=== PATIENT | female | born 1935 | race Caucasian/White ===

== ENCOUNTER → 2018-02-17 | Outpatient (CLI) | payer MEDICARE ==
--- NOTE | 2018-02-17 14:49 | RAD ---
Bone densitometry 02/17/2018 9:52 AM Indication: screening, ov failure, hx breast ca Comparison Study: None available. Discussion: Bone Densitometry was performed with dual photon absorption of the lumbar spine and right proximal femur. Lumbar Spine: Bone average density is is 1.237g/cm2 for L1-L4. T-Score is 0.5 Right femoral neck: Bone average density is 0.8 x 5g/cm2. T-Score is -1.3. IMPRESSION: Osteopenia as measured in the right femoral neck. Note: Definitions established by the World Health Organization: Normal: T-score is -1.0 or above. Osteopenia: T-score is between -1.0 and -2.5. Osteoporosis: T-score is -2.5 or below. Electronically signed by: Agustin An MD (02/17/2018 2:46 PM) [facility]
== END | disposition home or self-care (01) ==
LOC: DXRAD 09:27
PROVIDERS: ATTEND Neuromusculoskeletal Medicine & OMM
DX: M85.851 Other specified disorders of bone density and structure, right thigh (principal)
CPT/HCPCS: 77080

== ENCOUNTER → 2018-02-18 | Outpatient (CLI) | payer MEDICARE ==
[2018-02-18 09:10] LABS: BASO % 1 % (0-3); EOS # 0.3 x10^3/uL (0.0-0.7); EOS % 5 % (0-3); HEMATOCRIT 39.7 % (36.0-47.0); HEMOGLOBIN 13.2 g/dL (12.0-15.5); LYMPH # 1.7 x10^3/uL (1.0-4.8); LYMPH % 27 % (24-48); MEAN CORPUSCULAR HEMOGLOBIN 30 pg (25-35); MEAN CORPUSCULAR HGB CONC 33 g/dL (31-37); MEAN CORPUSCULAR VOLUME 90 fL (79-100); MONO # 0.5 x10^3/uL (0.0-1.1); MONO % 8 % (0-9); NEUT # 3.8 x10^3uL (1.8-7.7); NEUT % 60 % (31-73); PLATELET COUNT 283 x10^3/uL (140-400); RED BLOOD COUNT 4.43 x10^6/uL (3.50-5.40); RED CELL DISTRIBUTION WIDTH 14.1 % (11.5-14.5); WHITE BLOOD COUNT 6.3 x10^3/uL (4.0-11.0)
[2018-02-18 09:15] LABS: ALBUMIN 3.5 g/dL (3.4-5.0); ALBUMIN/GLOBULIN RATIO 0.9 (1.0-1.7); CALCIUM 8.6 mg/dL (8.5-10.1); CREATININE 0.9 mg/dL (0.6-1.0); GFR 60.1; POTASSIUM 3.5 mmol/L (3.5-5.1); TOTAL BILIRUBIN 0.9 mg/dL (0.2-1.0); TOTAL PROTEIN 7.4 g/dL (6.4-8.2)
[2018-02-18 09:29] LABS: BACTERIA,URINE 0 /HPF (0-FEW); BILIRUBIN,URINE NEG (NEG); CLARITY,URINE HAZY; COLOR,URINE YELLOW; GLUCOSE,URINE NEG (NEG); NITRITE,URINE NEG (NEG); RBC,URINE 0 /HPF (0-2); SQUAMOUS EPITHELIAL CELL,UR FEW /LPF; UROBILINOGEN,URINE 0.2 mg/dL (0.2 mg/dL); WBC,URINE OCC /HPF (0-4)
[2018-02-18 15:18] LABS: THYROID STIM HORMONE (TSH) 1.9 uIU/mL (0.358-3.740)
== END | disposition home or self-care (01) ==
LOC: LAB 07:22
PROVIDERS: ATTEND Neuromusculoskeletal Medicine & OMM
DX: Z00.01 Encounter for general adult medical examination with abnormal findings (principal); E03.9 Hypothyroidism, unspecified; I10 Essential (primary) hypertension; L20.9 Atopic dermatitis, unspecified; Z79.01 Long term (current) use of anticoagulants; M85.851 Other specified disorders of bone density and structure, right thigh
CPT/HCPCS: 36415; 80053; 80061; 81001; 82306; 84439; 84443; 85025; 87086

== ENCOUNTER → 2018-03-09 | Outpatient (CLI) | payer MEDICARE ==
--- NOTE | 2018-03-09 12:51 | RAD ---
EXAM: Bilateral knees, 3 views. HISTORY: Pain. COMPARISON: None. FINDINGS: Frontal, lateral and sunrise views of both knees are obtained. There are bilateral knee arthroplasties in expected position. There is no periprosthetic fracture. There is no evidence of loosening. There is a trace right knee effusion. IMPRESSION: 1. Bilateral knee arthroplasties in expected position. 2. Suspected trace right knee effusion. Electronically signed by: Elise Mcguire MD (03/09/2018 12:48 PM) [facility]
== END | disposition home or self-care (01) ==
LOC: RAD 10:34
PROVIDERS: ATTEND Orthopaedic Surgery Sports Medicine
DX: M25.561 Pain in right knee (principal); M25.562 Pain in left knee; Z96.653 Presence of artificial knee joint, bilateral
CPT/HCPCS: 73562

== ENCOUNTER → 2018-05-09 | Outpatient (CLI) | payer MEDICARE ==
--- NOTE | 2018-05-09 14:22 | RAD ---
Bilateral lower extremity arterial Doppler ultrasound HISTORY: CLAUDICATION, PVD TECHNIQUE: Color Doppler, grayscale and duplex analysis performed of the right and left lower extremity arterial structures, from the common femoral artery through the runoff vessels. COMPARISON: None are available All velocity measurements are in centimeters per second. Right leg: Triphasic waveform at the right common femoral artery. Biphasic waveforms from the superficial femoral artery through the calf and ankle. Velocities in the common femoral artery is 126. Velocities from the superficial femoral artery through the ankle range from 54-100. Left leg: Biphasic waveform throughout the left lower extremity arteries. Left common femoral artery velocity is 125. Velocities from the superficial femoral artery through the calf range from 50-107. IMPRESSION: Mostly biphasic waveforms. No sonographic evidence of occlusive disease or high-grade stenosis. Electronically signed by: Mateo Alicea MD (05/09/2018 2:18 PM) [facility]
== END | disposition home or self-care (01) ==
LOC: US 09:48
PROVIDERS: ATTEND Podiatrist Foot & Ankle Surgery
DX: I70.213 Atherosclerosis of native arteries of extremities with intermittent claudication, bilateral legs (principal); M20.41 Other hammer toe(s) (acquired), right foot; M19.90 Unspecified osteoarthritis, unspecified site; E07.89 Other specified disorders of thyroid; K21.9 Gastro-esophageal reflux disease without esophagitis; I10 Essential (primary) hypertension; Z79.01 Long term (current) use of anticoagulants; Z79.899 Other long term (current) drug therapy; Z87.442 Personal history of urinary calculi
CPT/HCPCS: 93925

== ENCOUNTER → 2018-05-10 | Outpatient (CLI) | payer MEDICARE ==
--- NOTE | 2018-05-10 14:46 | CARD ---
MR#: [id number] Date of Study: 05/10/2018 Ordering Physician: JAY DIANA, Referring Physician: JAY DIANA, Tech: Elin Jones RUSSELL APPROVED REPORT EXAM: Two-dimensional and M-mode echocardiogram with Doppler and color Doppler. Other Information Quality : Good INDICATION History of Pulmonary Embolism 2D DIMENSIONS Left Atrium(2D)3.4 (1.6-4.0cm)IVSd0.7 (0.7-1.1cm) Aortic Root(2D)2.6 (2.0-3.7cm)LVDd4.2 (3.9-5.9cm) LVOT Diameter2.0 (1.8-2.4cm)PWd0.7 (0.7-1.1cm) LVDs2.6 (2.5-4.0cm)FS (%) 30.0 % SV55.4 mlLVEF(%)60.0 (>50%) Aortic Valve AoV Peak Troy.188.0cm/sAoV VTI33.2cm AO Peak GR.14.1mmHgLVOT Peak Troy.127.6cm/s LVOT VTI 26.09cmAO Mean GR.7mmHg CORKY (VMAX)2.90vu2JZH (VTI)2.55cm2 Mitral Valve MV E Wwtadzjv63.0cm/sMV DECEL INTF773xw MV A Qwdqoihb79.5cm/sE/A Ratio0.8 Tricuspid Valve TR P. Kzhiutnw779nw/sRAP OQCESXBU6kiHe TR Peak Gr.20sjZhGFMQ52tuCn Pulmonary Vein S1 Nnigsfwh99.1cm/sD2 Tkabmpjk36.6cm/s LEFT VENTRICLE The left ventricle is normal size. There is normal left ventricular wall thickness. The left ventricu lar systolic function is normal. The Ejection Fraction is 55-60%. There is normal LV segmental wall m otion. Transmitral Doppler flow pattern is Grade I-abnormal relaxation pattern. RIGHT VENTRICLE The right ventricle is normal size. The right ventricular systolic function is normal. ATRIA The left atrium size is normal. The right atrium size is normal. The interatrial septum is intact wit h no evidence for an atrial septal defect or patent foramen ovale as noted on 2-D or Doppler imaging. AORTIC VALVE The aortic valve is calcified but opens well. Doppler and Color Flow revealed no significant aortic r egurgitation. There is no significant aortic valvular stenosis. MITRAL VALVE The mitral valve is calcified but opens well. Posterior mitral annular calcification is mild. There i s no evidence of mitral valve prolapse. There is no mitral valve stenosis. Doppler and Color-flow rev ealed mild mitral regurgitation. TRICUSPID VALVE The tricuspid valve is normal in structure and function. Doppler and Color Flow revealed mild to mode rate tricuspid regurgitation. There is moderate pulmonary hypertension. The PA pressure was estimated at 45 mmHg. There is no tricuspid valve stenosis. PULMONIC VALVE The pulmonary valve is normal in structure and function. Doppler and Color Flow revealed mild pulmoni c valvular regurgitation. There is no pulmonic valvular stenosis. GREAT VESSELS The aortic root is normal in size. The ascending aorta is normal in size. The IVC is normal in size a nd collapses >50% with inspiration. PERICARDIAL EFFUSION There is no evidence of significant pericardial effusion. Critical Notification Critical Value: No <Conclusion> The left ventricular systolic function is normal. The Ejection Fraction is 55-60%. There is normal LV segmental wall motion. Transmitral Doppler flow pattern is Grade I-abnormal relaxation pattern. Mild mitral regurgitation. Mild to moderate tricuspid regurgitation. The PA pressure was estimated at 45 mmHg. There is no evidence of significant pericardial effusion. Signed by : Bertrand Minor, Electronically Approved : 05/10/2018 14:45:15
== END | disposition home or self-care (01) ==
LOC: ECHO 13:44
PROVIDERS: ATTEND Internal Medicine Cardiovascular Disease
DX: I26.99 Other pulmonary embolism without acute cor pulmonale (principal); I08.1 Rheumatic disorders of both mitral and tricuspid valves
CPT/HCPCS: 93306

== ENCOUNTER → 2018-09-14 | Outpatient (CLI) | payer MEDICARE | END | disposition home or self-care (01) | LOC: LAB 07:35 | PROVIDERS: ATTEND Internal Medicine Cardiovascular Disease | DX: I10 Essential (primary) hypertension (principal) | CPT/HCPCS: 80061 ==

== ENCOUNTER → 2018-09-15 | Outpatient (CLI) | payer MEDICARE ==
--- NOTE | 2018-10-04 16:52 | RAD ---
MR#: [id number] Date of Study: 09/15/2018 Ordering Physician: JAY DIANA, Referring Physician: JAY DIANA, Tech: Lisa Jaramillo RDMS Sabina APPROVED REPORT Patient Location : OUT-PATIENT Indications Lower Extremity Pain : Right Lower Extremity Edema : Bilateral History of DVT MULT BROKEN SUPERFICIAL VEINS Risk Factors Prior Phlebitis/DVT Grayscale images of the bilateral saphenofemoral junctions do not reveal any obvious evidence of thro mbus. The right great saphenous vein has a maximum reflux time of 2.5 seconds and measures approximat precious 3.2 mm. Below the knee the great saphenous vein bifurcates into multiple branches. The right less er saphenous vein measures approximately 5.7 mm and does not have any significant reflux. The left great saphenous vein measures proximally 6 mm and has no significant reflux. The left lesser saphenous vein does not have any significant reflux. No obvious incompetent Perforators are noted. Past History DVT :Bilateral Pulmonary Embolism Medications PATIENT ON BLOOD THINNERS Deep System Deep Venous Thrombosis present : No Deep Venous Reflux present : Yes Greater Saphenous Veins (GSV) Significant venous relux noted in the RIGHT GSV at the following levels : Proximal Thigh, Mid Thigh, Distal Thigh Accessory Veins Right Anterior Accessory Vein : Present : No Leftt Anterior Accessory Vein : Present : No Right Posterior Accessory Vein : Present : No Left Posterior Accessory Vein : Present : No Critical Notification Critical Value: No <Conclusion> 1. Positive for reflux in the right great saphenous vein. Signed by : Jay Diana, Electronically Approved : 10/04/2018 16:52:25
--- NOTE | 2018-10-04 16:54 | RAD ---
MR#: [id number] Date of Study: 09/15/2018 Ordering Physician: JAY DIANA, Referring Physician: JAY DIANA, Tech: Lisa Jaramillo RDMS, T APPROVED REPORT Bilateral Lower Extremity Venous Study for Venous Competence Patient Location: OUT-PATIENT Indications Lower Extremity Pain: Right Lower Extremity Edema: Bilateral The bilateral lower extremity deep veins were evaluated for thrombus with color Doppler, spectral and grayscale images. On the right the grayscale images of the common femoral, superficial femoral and popliteal veins do n ot demonstrate any evidence of thrombus and these veins appear to be compressible. The below-knee vei ns were not well visualized but grossly appear to be compressible. Spectral imaging and color Doppler do not reveal any evidence of obstruction to flow with normal respirophasic variation above the knee . Below the knee there is spontaneous flow noted. On the left, the grayscale images of the common femoral, superficial femoral and popliteal veins do n ot demonstrate any evidence of thrombus and these veins appear to be compressible. The below-knee vei ns again were not well visualized but grossly appear to be compressible. Spectral imaging and color D oppler do not reveal any evidence of obstruction to flow with normal respirophasic variation above th e knee. The below-knee veins demonstrate spontaneous flow. Risk Factors Prior Phlebitis/DVT Past History DVT :Bilateral Pulmonary Embolism Medications PT ON BLOOD THINNERS Vein Imaging (Right) CFV (R): Compressible SFJ (R): Compressible FEM (R): Compressible POP (R): Compressible DFV (R): Compressible PTV (R): Compressible GSV (R): Compressible Peroneals (R): Compressible Vein Imaging (Left) CFV (L): Compressible SFJ (L): Compressible FEM (L): Compressible POP (L): Compressible DFV (L): Compressible PTV (L): Compressible GSV (L): Compressible Peroneals (L): Compressible Doppler Evaluation (Right) CFV (R): Spontaneous POP (R):Spontaneous Doppler Evaluation (Left) CFV (L):Spontaneous POP (L):Spontaneous Critical Notification Critical Value: No <Conclusion> Negative for DVT in the bilateral lower extremities Signed by : Jay Diana, Electronically Approved : 10/04/2018 16:53:50
== END | disposition home or self-care (01) ==
LOC: US 07:31
PROVIDERS: ATTEND Internal Medicine Cardiovascular Disease
DX: I87.2 Venous insufficiency (chronic) (peripheral) (principal); Z86.711 Personal history of pulmonary embolism; Z86.718 Personal history of other venous thrombosis and embolism
CPT/HCPCS: 93970

== ENCOUNTER → 2020-06-14 | Outpatient (CLI) | payer MEDICARE ==
--- NOTE | 2020-06-14 11:06 | CARD ---
MR#: [id number] Date of Study: 06/14/2020 Ordering Physician: JAY DIANA, Referring Physician: JAY DIANA, Tech: Elin Jones RUSSELL APPROVED REPORT EXAM: Two-dimensional and M-mode echocardiogram with Doppler and color Doppler. Other Information Quality : Good INDICATION Hypertension/HCVD 2D DIMENSIONS RVDd2.1 (2.9-3.5cm)Left Atrium(2D)2.9 (1.6-4.0cm) IVSd0.7 (0.7-1.1cm)Aortic Root(2D)2.5 (2.0-3.7cm) LVDd4.2 (3.9-5.9cm)LVOT Diameter1.9 (1.8-2.4cm) PWd0.7 (0.7-1.1cm)LVDs2.8 (2.5-4.0cm) FS (%) 33.7 %SV48.1 ml LVEF(%)63.0 (>50%) Aortic Valve AoV Peak Troy.160.3cm/sAoV VTI26.1cm AO Peak GR.10.3mmHgLVOT Peak Troy.109.4cm/s LVOT VTI 20.15cmAO Mean GR.5mmHg CORKY (VMAX)1.00db4RKV (VTI)2.12cm2 Mitral Valve MV E Gaojtcbg69.2cm/sMV DECEL CBQH139yf MV A Yskywfyu68.0cm/sE/A Ratio0.6 Tricuspid Valve TR P. Mbmlyoob624qk/sRAP TSJAWBOI9ybVz TR Peak Gr.56pbIjYNFO21giKz Pulmonary Vein S1 Dpxnscmf92.0cm/sD2 Yvlayavh85.2cm/s LEFT VENTRICLE The left ventricle is normal size. There is normal left ventricular wall thickness. The left ventricu lar systolic function is normal. The Ejection Fraction is 60-65%. There is normal LV segmental wall m otion. Transmitral Doppler flow pattern is Grade I-abnormal relaxation pattern. RIGHT VENTRICLE The right ventricle is normal size. The right ventricular systolic function is normal. ATRIA The left atrium size is normal. The right atrium size is normal. The interatrial septum is intact wit h no evidence for an atrial septal defect or patent foramen ovale as noted on 2-D or Doppler imaging. AORTIC VALVE The aortic valve is calcified but opens well. Doppler and Color Flow revealed no significant aortic r egurgitation. There is no significant aortic valvular stenosis. MITRAL VALVE The mitral valve is calcified but opens well. There is no evidence of mitral valve prolapse. There is no mitral valve stenosis. Doppler and Color-flow revealed mild to moderate eccentric mitral regurgit ation. TRICUSPID VALVE The tricuspid valve is normal in structure and function. Doppler and Color Flow revealed mild tricusp id regurgitation. There is mild pulmonary hypertension. The PA pressure was estimated at 38 mmHg. The re is no tricuspid valve stenosis. PULMONIC VALVE The pulmonic valve is not well visualized. Doppler and Color Flow revealed mild pulmonic valvular reg urgitation. There is no pulmonic valvular stenosis. GREAT VESSELS The aortic root is normal in size. The ascending aorta is normal in size. The IVC is normal in size a nd collapses >50% with inspiration. PERICARDIAL EFFUSION There is no evidence of significant pericardial effusion. Critical Notification Critical Value: No <Conclusion> The left ventricular systolic function is normal. The Ejection Fraction is 60-65%. There is normal LV segmental wall motion. Transmitral Doppler flow pattern is Grade I-abnormal relaxation pattern. Mild to moderate eccentric mitral regurgitation. Mild tricuspid regurgitation. There is mild pulmonary hypertension. The PA pressure was estimated at 38 mmHg. There is no evidence of significant pericardial effusion. Signed by : Bertrand Minor, Electronically Approved : 06/14/2020 11:06:16
== END ==
LOC: ECHO 10:11
PROVIDERS: ATTEND Internal Medicine Cardiovascular Disease
DX: I08.8 Other rheumatic multiple valve diseases (principal)
CPT/HCPCS: 93306

== ENCOUNTER → 2020-07-25 | Outpatient (CLI) | payer MEDICARE ==
--- NOTE | 2020-07-26 01:51 | RAD ---
EXAM: XR KNEE 1-2 VIEWS, XR KNEE_AP BILAT STANDING. HISTORY: Bilateral knee pain. COMPARISON: None. FINDINGS: Bilateral total knee arthroplasties are in expected alignment. Osteopenia is at least mild. No fractures are identified. There is no joint effusion bilaterally. IMPRESSION: 1. Bilateral total knee arthroplasties in expected alignment. Electronically signed by: Carlos Vargas MD (07/26/2020 1:49 AM) [facility]
== END ==
LOC: DXRAD 12:40
PROVIDERS: ATTEND Orthopaedic Surgery
DX: M85.88 Other specified disorders of bone density and structure, other site (principal); M25.561 Pain in right knee; M25.562 Pain in left knee; Z96.653 Presence of artificial knee joint, bilateral
CPT/HCPCS: 73560; 73565

== ENCOUNTER 2021-02-20 11:28 | Observation (INO) | payer MEDICARE ==
[~2021-02-20] VITALS: Ht 157.5 cm; Wt 79.0 kg
--- NOTE | 2021-02-20 11:42 | RAD ---
CT scan of the head without contrast 02/20/2021 Clinical History: Neurological deficit. Code stroke. Technique: Unenhanced, contiguous, 5 mm axial sections were obtained through the head. One or more of the following individualized dose reduction techniques were utilized for this study: 1. Automated exposure control. 2. Adjustment of the mA and/or kV according to patient size. 3. Use of iterative reconstruction technique. Findings: No previous studies are available for comparison. There is generalized parenchymal atrophy. Areas of decreased attenuation are seen within the perivent ricular and subcortical white matter of both cerebral hemispheres consistent with areas of small vess el ischemic disease. No acute parenchymal abnormality is seen. No extra-axial fluid collection is not ed. No skull fracture is seen. Impression: No acute intracranial abnormality is seen. This result was called to Dr. Carpenter in the emergency department at 1135 hours. FOR INTERNAL CODING PURPOSES RESULT CODE: (C) Electronically signed by: Kevon Perez MD (02/20/2021 11:40 AM) [id number]
--- NOTE | 2021-02-20 11:50 | EKG ---
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
[2021-02-20 11:55] LABS: BASO % 0 % (0-3); EOS # 0.2 x10^3/uL (0.0-0.7); EOS % 3 % (0-3); HEMATOCRIT 36.3 % (36.0-47.0); HEMOGLOBIN 11.9 g/dL (12.0-15.5); LYMPH # 1.7 x10^3/uL (1.0-4.8); LYMPH % 28 % (24-48); MEAN CORPUSCULAR HEMOGLOBIN 30 pg (25-35); MEAN CORPUSCULAR HGB CONC 33 g/dL (31-37); MEAN CORPUSCULAR VOLUME 91 fL (79-100); MONO # 0.4 x10^3/uL (0.0-1.1); MONO % 7 % (0-9); NEUT # 3.7 x10^3uL (1.8-7.7); NEUT % 62 % (31-73); PLATELET COUNT 242 x10^3/uL (140-400); RED BLOOD COUNT 3.99 x10^6/uL (3.50-5.40); RED CELL DISTRIBUTION WIDTH 13.9 % (11.5-14.5)
[2021-02-20 12:07] LABS: CREATININE 0.9 mg/dL (0.6-1.0); GFR 59.7
--- NOTE | 2021-02-20 12:11 | PHYS DOC ---
Past History Additional Past Medical Histor: blood clots Past Surgical History: No Surgical History General Adult EDM: Chief Complaint: NEURO SYMPTOMS/DEFICITS HPI: HPI: 85-year-old female presents via EMS from a care facility as a code stroke. The patient was reported to be in the car with her friend and going out for breakfast when she started some difficulty speaking and seemed to just slumped over. Her friend called EMS and when EMS arrived she was slumped over in the car. During transport, the patient was able to answer yes and no questions, but when she spoke her words were not intelligible. She was awake and alert. They thought she might have some right-sided weakness. The patient and her spouse confirmed the story to me. The patient can tell that her speech is messed up. She does not feel like it is difficult to find words. She denies any change in sensation or feeling. She was feeling well prior to this episode. Review of Systems: Review of Systems: Constitutional: Denies fever or chills Eyes: Denies change in visual acuity HENT: Denies nasal congestion or sore throat Respiratory: Denies cough or shortness of breath Cardiovascular: Denies chest pain or edema GI: Denies abdominal pain, nausea, vomiting, bloody stools or diarrhea : Denies dysuria Musculoskeletal: Denies back pain or joint pain Integument: Denies rash Neurologic: Slurred speech. Denies headache, focal weakness or sensory changes Endocrine: Denies polyuria or polydipsia Lymphatic: Denies swollen glands Psychiatric: Denies depression or anxiety Physical Exam: PE: Constitutional: Well developed, well nourished, obese, no acute distress, non- toxic appearance. [] HENT: Normocephalic, atraumatic, bilateral external ears normal, oropharynx moist, no oral exudates, nose normal. [] Eyes: PERRLA, EOMI, conjunctiva normal, no discharge. [] Neck: Normal range of motion, no tenderness, supple, no stridor. [] Cardiovascular: Heart rate regular rhythm, no murmur [] Lungs & Thorax: Bilateral breath sounds clear to auscultation [] Abdomen: Bowel sounds normal, soft, no tenderness, no masses, no pulsatile masses. [] Skin: Warm, dry, no erythema, no rash. [] Back: No tenderness, no CVA tenderness. [] Extremities: No tenderness, no cyanosis, no clubbing, ROM intact, no edema. [] Neurologic: See NIH stroke scale [] Psychologic: Affect normal, judgement normal, mood frustrated. [] Current Patient Data: Vital Signs: Vital Signs Date Time Temp Pulse Resp B/P (MAP) Pulse Ox O2 Delivery O2 Flow Rate FiO2 02/20/21 11:28 90 16 123/59 (80) 93 Room Air EKG: EKG: Sinus rhythm, rate 86, leftward axis, left bundle branch block, no ST elevation or depressions. [] Radiology/Procedures: Radiology/Procedures: [] Impressions: CT scan of the head without contrast 02/20/2021 Clinical History: Neurological deficit. Code stroke. Technique: Unenhanced, contiguous, 5 mm axial sections were obtained through the head. One or more of the following individualized dose reduction techniques were utilized for this study: 1. Automated exposure control. 2. Adjustment of the mA and/or kV according to patient size. 3. Use of iterative reconstruction technique. Findings: No previous studies are available for comparison. There is generalized parenchymal atrophy. Areas of decreased attenuation are seen within the periventricular and subcortical white matter of both cerebral hemispheres consistent with areas of small vessel ischemic disease. No acute parenchymal abnormality is seen. No extra-axial fluid collection is noted. No skull fracture is seen. Impression: No acute intracranial abnormality is seen. This result was called to Dr. Puckett in the emergency department at 1135 hours. FOR INTERNAL CODING PURPOSES RESULT CODE: (C) Electronically signed by: Kevon Perez MD (02/20/2021 11:40 AM) [id number] DICTATED AND SIGNED BY: KEVON PEREZ MD DATE: 02/20/21 1137 CC: PAULINA PUCKETT DO; RADHA LANDERS MD ~MTH0 0 Heart Score: C/O Chest Pain: N/A Risk Factors: Risk Factors: DM, Current or recent (<one month) smoker, HTN, HLP, family history of CAD, obesity. Risk Scores: Score 0 - 3: 2.5% MACE over next 6 weeks - Discharge Home Score 4 - 6: 20.3% MACE over next 6 weeks - Admit for Clinical Observation Score 7 - 10: 72.7% MACE over next 6 weeks - Early Invasive Strategies Course & Med Decision Making: Course & Med Decision Making Pertinent Labs and Imaging studies reviewed. (See chart for details) Patient's labs are unremarkable. She is improving over time in the ER. Her speech has become more intelligible. She is on a blood thinner Eliquis or Xarelto. She is not a candidate for TPA. Her total NIH score for me was only a 2. Her head CT was negative for acute findings. I spoke with Dr. Mathew, the hospitalist and he has accepted the patient for admission. [] Dragon Disclaimer: Dragon Disclaimer: This electronic medical record was generated, in whole or in part, using a voice recognition dictation system. NIH Stroke Scale: NIH Stroke Scale Response (Comments) Value Level of Consciousness: 0 Alert/Responsive 0 LOC Questions: 0 Answers both correctly 0 LOC Commands: 0 Performs both tasks 0 Best Gaze: 0 Normal 0 Visual: 0 No visual loss 0 Facial Palsy: 0 Normal, symmetrical 0 Motor - Left Arm 0 No drift 0 Motor - Right Arm 0 No drift 0 Motor - Left Leg 0 No drift 0 Motor: Right Leg 1 Drift but can hold 1 Limb Ataxia: 0 Absent 0 Sensory: 0 No loss 0 Best Language: 0 Normal 0 Dysathria: 1 Mild to moderate 1 Extinction and Inattention: 0 Normal 0 Total 2 Departure Departure: Impression: Primary Impression: TIA (transient ischemic attack) Additional Impression: Slurred speech Disposition: ADMITTED INPATIENT Admitting Physician: Giovani Mathew Condition: STABLE Referrals: RADHA LANDERS MD (PCP) PAULINA PUCKETT DO Feb 20, 2021 12:11
[2021-02-20 12:12] LABS: ALBUMIN 3.3 g/dL (3.4-5.0); TOTAL BILIRUBIN 0.4 mg/dL (0.2-1.0); TOTAL PROTEIN 6.7 g/dL (6.4-8.2)
[2021-02-20] MEDS ORDERED: ONDANSETRON PF 4 MG/2 ML VIAL. IVP PRN (13:45)
[2021-02-20 17:00] VITALS: BP 130/66
--- NOTE | 2021-02-20 19:06 | NUR ---
The patient, YAMILET CHAU , 85 y/o, F admitted by RIMA GAN MD, was given written information regarding hospital policies, unit procedures and contact persons. Valuables were checked and recorded. Patient is alert and oriented. NIHSS performed along with Bedside swallow study. Both are recorded in EMR. Patient is currently in bed with side rails up X's 2 with call light in reach. [facility].
--- NOTE | 2021-02-20 19:21 | NUR ---
Routine consult to [facility] cardio called at this time.
[2021-02-20 19:22] VITALS: BP 139/74
[2021-02-20] MEDS ORDERED: LISI10TA16 PO (19:28)
[2021-02-20] MEDS ORDERED: APIX2.5T PO (19:28)
[2021-02-20 20:05] VITALS: BP 105/48
[2021-02-20 21:19] VITALS: BP 102/51
[2021-02-20 22:02] VITALS: BP 104/51
[2021-02-20 22:57] VITALS: BP 111/49
[2021-02-21] VITALS (8 sets, daily range): BP systolic 96–144; BP diastolic 53–82
--- NOTE | 2021-02-21 05:26 | NUR ---
Uneventful shift; during evening pt was awake, alert, and without c/o; VSS, oriented x4, conversing frequently with staff; neuro's intact, NIH stroke scale score of 1; ambulates to bathroom with minimal assist x1; tolerates PO intake without difficulty; slept well after approx 2200, easily awakens to voice; no voiced needs or concerns at this time, states she is hoping to return home later this day.
--- NOTE | 2021-02-21 09:00 | NUR ---
PATIENT STATED SHE TAKES LIPITOR AT HOME BUT DOSAGE WAS UNVERIFIABLE VERBALLY INFORMED TO CONTINUE HER STATIN PER DR. DIANA.
[2021-02-21] MEDS ORDERED: APIX5TAB3 PO (10:15)
[2021-02-21] MEDS ORDERED: APIXABAN 5 MG TABLET. PO SCH (10:45)
--- NOTE | 2021-02-21 10:53 | HP ---
ADMIT DATE: 02/20/2021 ATTENDING PHYSICIAN: Dr. Mathew. CHIEF COMPLAINT: The patient had trouble speaking. HISTORY OF PRESENT ILLNESS: The patient is a very pleasant, alert 85-year-old female. She is on Eliquis for previous blood clots. She had new onset of difficulty speaking. She seemed to slump over. Code stroke was called. During the transport, patient would answer yes or no questions, but had some word salad. She also has an associated right-sided weakness. By the time she got to the ED, her speech improved. Her CT scan showed no acute strokes or bleed. She is on Eliquis. We gave her an extra dose. She was better by the time I saw her this morning. She was speaking. Her neurologic deficits cleared up. Her speech was fluent and she had no further issues. She was admitted into the hospital with a diagnosis of TIA and evaluation. PAST MEDICAL HISTORY: Significant for the stroke or TIAs in the past. She has had previous blood clots. In addition, she has hypertension. She is not diabetic. FAMILY HISTORY: Noncontributory. SOCIAL HISTORY: Nonsmoker, nondrinker. She lives with her , still very active. She gets around. CURRENT MEDICATIONS: Include Eliquis 2.5 mg b.i.d. and lisinopril 10 mg daily. FAMILY HISTORY: Noncontributory. REVIEW OF SYSTEMS: Significant for some degenerative arthritis. She has had no bleeding issues. No COVID exposure. All other systems reviewed and turned to be negative. PHYSICAL EXAMINATION: GENERAL: When I saw her, this is a pleasant female. VITAL SIGNS: Initial vital signs showed a blood pressure 111/62, pulse is 88 and regular. She was afebrile, oxygen saturation 96% on room air. HEENT: Head is without trauma. Pupils are reactive. Sclerae nonicteric. Oropharynx is clear. NECK: Supple. No bruits. LUNGS: Clear. CARDIOVASCULAR: Regular heart tones. ABDOMEN: Soft. EXTREMITIES: Without edema. NEUROLOGIC: Her speech is fluent. Cranial nerves II-XII are intact. Liability Claims Examiner were intact and symmetrical. She had no pronator drift. Muscle strength in upper and lower extremities were equal and symmetrical. Her gait was adequate. Once again, her speech improved and she was able to speak without any deficits or aphasia. LABORATORY DATA: Hemoglobin 11.9 g/dL, white count 6000. Chemistry panel unremarkable. Nonfasting blood sugar is 121. Cardiac enzymes negative for coronary ischemia. Serology negative for coronavirus. CT of the head as noted. ASSESSMENT: 1. An 85-year-old female with documented TIAs, lasting for several hours. Symptoms have resolved and she is back to her baseline. 2. Hypertension. 3. History of blood clots, on chronic anticoagulation. PLAN: 1. Observation status. 2. Increase Eliquis to 5 mg b.i.d. 3. Continue home meds. 4. Diet as tolerated. RICKEY DR: Gin TID: [id number] CC: RADHA LANDERS MD
--- NOTE | 2021-02-21 11:27 | NUR ---
Discharge Note: [facility] ICU 2 Patient was alert and oriented this am. Patient displayed no signs of symptoms of TIA. Patients speech was clear with no slurring or aphasia. Patient performed all commands appropriately given by this RN. Patient also participated with PT/OT with no complications. Therefore patient was approved for discharge per Dr. Mathew. Discharge instructions and discharge home medications reviewed with Patient and a copy given. All questions have been answered and understanding verbalized. The following instructions and handouts were given: TIA, STROKE, AND STROKE PREVENTION Discontinued lines and drains. Patient discharged to home with self care. Patient left the unit via wheelchair accompanied by the RN. Patient left the hospital via private vehicle transported by her .
--- NOTE | 2021-02-21 13:53 | PDOC2 ---
CONSULT DOS: DATE: 02/21/21 TIME: 13:49 Reason for Consult: TIA Referring Physician: Dr. Mathew Chief Complaint Confusion and decreased level of consciousness. Source: Chart review, Patient Problem List Problems Medical Problems: (1) Slurred speech Status: Acute (2) TIA (transient ischemic attack) Status: Acute History of Present Illness The patient is an 85-year-old female with a history of hypertension and previous TIAs who developed difficulty in speech and weakness last evening. Her words were reportedly not intelligible and she was slumped over in in her car when paramedics arrived. She was transported to the emergency room and CT scanning showed generalized parenchymal atrophy but no acute intracranial changes. Her EKG showed a sinus rhythm with a left bundle branch block. Initial lab included a potassium of 4.0 creatinine of 0.9 troponin of less than 0.017. Overnight the patient's confusion and word slurring has resolved. She is alert and oriented. She can have a normal conversation. She is remained in sinus rhythm overnight. Cardiovascular: HTN CENTRAL NERVOUS SYSTEM: TIA Past Surgical History: No pertinent history Family History: Hypertension Smoke: No ALCOHOL: none Current Medications Current Medications Ondansetron HCl (Zofran) 4 mg PRN Q4HRS PRN IVP NAUSEA/VOMITING; Start 02/20/21 at 13:45; Stop 02/21/21 at 12:06; Status DC Apixaban (Eliquis) 5 mg BID PO Last administered on 02/21/21at 10:45; Start 02/21/21 at 10:45; Stop 02/21/21 at 12:06; Status DC Active Scripts Active Reported Eliquis (Apixaban) 5 Mg Tablet 5 Mg PO BID Lisinopril 10 Mg Tablet 10 Mg PO DAILY Allergies: Coded Allergies: No Known Drug Allergies (Unverified , 02/20/21) Neurological: YES: Confusion, Speech Problems General: Alert, Oriented X3, No acute distress HEENT: PERRLA Lungs: Clear to auscultation Heart: Regular rate Abdomen: Normal bowel sounds VITALS Vital Signs Date Time Temp Pulse Resp B/P (MAP) Pulse Ox O2 Delivery O2 Flow Rate FiO2 02/21/21 10:00 87 19 132/78 (96) 97 Room Air 02/21/21 01:48 97.9 Labs Laboratory Tests Test 02/20/21 11:43 02/20/21 14:20 02/20/21 14:31 White Blood Count 6.0 x10^3/uL (4.0-11.0) Red Blood Count 3.99 x10^6/uL (3.50-5.40) Hemoglobin 11.9 g/dL (12.0-15.5) Hematocrit 36.3 % (36.0-47.0) Mean Corpuscular Volume 91 fL (79-100) Mean Corpuscular Hemoglobin 30 pg (25-35) Mean Corpuscular Hemoglobin Concent 33 g/dL (31-37) Red Cell Distribution Width 13.9 % (11.5-14.5) Platelet Count 242 x10^3/uL (140-400) Neutrophils (%) (Auto) 62 % (31-73) Lymphocytes (%) (Auto) 28 % (24-48) Monocytes (%) (Auto) 7 % (0-9) Eosinophils (%) (Auto) 3 % (0-3) Basophils (%) (Auto) 0 % (0-3) Neutrophils # (Auto) 3.7 x10^3uL (1.8-7.7) Lymphocytes # (Auto) 1.7 x10^3/uL (1.0-4.8) Monocytes # (Auto) 0.4 x10^3/uL (0.0-1.1) Eosinophils # (Auto) 0.2 x10^3/uL (0.0-0.7) Basophils # (Auto) 0.0 x10^3/uL (0.0-0.2) Prothrombin Time 10.0 SEC (9.4-11.4) Prothromb Time International Ratio 1.0 (0.9-1.1) Activated Partial Thromboplast Time 24 SEC (23-33) Sodium Level 137 mmol/L (136-145) Potassium Level 4.0 mmol/L (3.5-5.1) Chloride Level 104 mmol/L (98-107) Carbon Dioxide Level 24 mmol/L (21-32) Anion Gap 9 (6-14) Blood Urea Nitrogen 17 mg/dL (7-20) Creatinine 0.9 mg/dL (0.6-1.0) Estimated GFR (Cockcroft-Gault) 59.7 BUN/Creatinine Ratio 19 (6-20) Glucose Level 121 mg/dL (70-99) Calcium Level 9.0 mg/dL (8.5-10.1) Total Bilirubin 0.4 mg/dL (0.2-1.0) Aspartate Amino Transf (AST/SGOT) 16 U/L (15-37) Alanine Aminotransferase (ALT/SGPT) 12 U/L (14-59) Alkaline Phosphatase 98 U/L (46-116) Troponin I Quantitative < 0.017 ng/mL (0-0.055) Total Protein 6.7 g/dL (6.4-8.2) Albumin 3.3 g/dL (3.4-5.0) Albumin/Globulin Ratio 1.0 (1.0-1.7) Coronavirus (COVID-19)(PCR) Not detected (NOT DETECTD) SARS-CoV-2 Antigen (Rapid) Negative (NEGATIVE) Images CT of the head as above. Assessment/Plan 1. TIA. Patient has neurologically resumed her baseline status. CT head scan showed no acute changes. Monitoring overnight showed no significant arrhythmias. At this time we will continue present medications and increase activity. 2. Hypertension. Controlled. Continue present medications. 3. History of blood clots. On chronic anticoagulation. Will obtain old records. SOLEDAD LY MD Feb 21, 2021 13:53
--- NOTE | 2021-02-21 14:57 | DS ---
DATE OF DISCHARGE: 02/21/2021 ATTENDING PHYSICIAN: Dr. Mathew. FINAL DISCHARGE DIAGNOSES: 1. Transient ischemic attack, symptoms resolved. 2. Dysarthria, resolved. 3. Chronic anticoagulation. 4. Hypertension. HISTORY OF PRESENT ILLNESS: The patient is a very pleasant, alert 85-year-old female. She is on chronic anticoagulation with previous blood clots. She had new symptoms of expressive aphasia and some right sided weakness. Workup in the ED showed no acute bleeds or strokes. She was admitted with TIA. Symptoms had resolved by the time she got to the ED. PHYSICAL EXAMINATION: Please see the dictated note. PERTINENT LABORATORY AND X-RAY STUDIES: Hemoglobin was 11.9 grams. White count 6000. Chemistry panel unremarkable. Cardiac enzymes negative. Coronavirus swab negative. CT of the head showed no acute bleeds or strokes. She had small vessel disease. COURSE IN THE HOSPITAL: The patient was admitted. We increased her Eliquis to 5 mg b.i.d. She did well. Her speech was fluent. She was able to ambulate. She had no further deficits. She wanted to go home. I felt this is reasonable. Therefore, we gave her an extra dose of Eliquis and we increased her dose to 5 mg b.i.d. I wrote new scripts. She will follow up with her regular physician, Dr. Landers as well as her application security consultant, Dr. Mayer. In addition, she should continue her lisinopril, dose unchanged. The patient was then discharged from our hospital in stable condition with explicit instructions and followup care. GARY/ENRIQUETA DR: Gin TID: [id number] CC: RADHA LANDERS MD
== END 2021-02-21 11:30 | disposition home or self-care (01) ==
LOC: ER 11:28 → INTOOBSV 13:44 → ICU 13:44
PROVIDERS: ADMIT Hospitalist; ATTEND Hospitalist
DX: G45.9 Transient cerebral ischemic attack, unspecified (principal); Z20.822 Contact with and (suspected) exposure to COVID-19; I10 Essential (primary) hypertension; R47.81 Slurred speech; I44.7 Left bundle-branch block, unspecified; R41.82 Altered mental status, unspecified; R47.1 Dysarthria and anarthria; R29.702 NIHSS score 2; Z79.01 Long term (current) use of anticoagulants; Z86.718 Personal history of other venous thrombosis and embolism; Z86.73 Personal history of transient ischemic attack (TIA), and cerebral infarction without residual deficits
CPT/HCPCS: 36415; 70450; 80053; 80061; 84484; 85025; 85610; 85730; 87426; 93005; 97116; 97161; 97165; 97530; 99285; G0378; U0003; G0379

== ENCOUNTER 2021-03-17 17:41 | Emergency (ER) | payer MEDICARE ==
[~2021-03-17] VITALS: Ht 157.5 cm; Wt 79.0 kg
[~2021-03-17 17:41] MED LIST: APIX2.5T PO; APIX5TAB3 PO; LISI10TA16 PO
--- NOTE | 2021-03-17 17:53 | PHYS DOC ---
Past History Past Medical History: Hypertension, TIA Additional Past Medical Histor: blood clots (HELENA BAY DO) Past Surgical History: No Surgical History (HELENA BAY DO) Alcohol Use: None (HELENA BAY DO) Adult General Chief Complaint Chief Complaint: NEURO SYMPTOMS/DEFICITS [facility] HPI Patient is a 81-year-old female presenting via POV for stroke. Reports last known normal was 1 hour prior to arrival. Denies any inciting event, trauma, ingestion, inciting event or trauma. Nothing known makes better or worse. Reports she started having difficulty speaking and motor weakness of right upper and lower extremities. States she has had difficulty with ambulating since onse t without any falls. Does admit she had recent hospitalization here approximately 1 month ago and was admitted February 20 for identical symptoms. Patient not a candidate for TPA as she is on Eliquis 2.5 mg twice daily for prior blood clots and throughout the course of her prior admission her symptoms self resolved and so, she was subsequently discharged home. Since hospital [facility], she denies any major changes in health or medications besides increased Eliquis dose from 2.5 mg twice daily to 5 mg twice daily change made during hospitalization. (HELENA BAY DO) Review of Systems Review of Systems Fourteen body systems of review of systems have been reviewed. See HPI for pertinent positives and negative responses, other diamond all other systems are negative, non-pertinent or non-contributory (HELENA BAY DO) Allergies Allergies Allergies Coded Allergies Type Severity Reaction Last Updated Verified No Known Drug Allergies 02/20/21 No (HELENA BAY DO) Physical Exam Physical Exam General: Appears well, non toxic, and comfortable. Age-appropriate Skin: Warm, dry. Normal for ethnicity. HEENT: Atraumatic. PERRLA. Moist mucous membranes. Neck: Trachea midline. Normal ROM. Respiratory: Normal WOB. CTAB w/o w/r/r. No tachypnea. Cardiovascular: Regular rate and rhythm. Normal peripheral perfusion. No edema. Abdomen: Soft. Non tender. No distension. Back: Normal ROM. Musculoskeletal: No swelling or deformity. Neuro: Alert and oriented x 4. Moving all extremities. GCS 15. Normal FNF. Negative pronator drift. Normal heel to guthrie. Normal Lara. Horizontal gaze palsy otherwise CN II-XII intact. Normal sensation but there is 4/5 muscle strength of right upper extremity versus contralateral side. Expressive aphasia Psych: Normal affect and mood. (HELENA BAY DO) EKG EKG [] (HELENA BAY DO) Radiology/Procedures Radiology/Procedures [] (HELENA BAY DO) Heart Score C/O Chest Pain: No HEART Score for Chest Pain: HEART Score for Chest Pain Response (Comments) Value Age > 65 2 Total 2 Risk Factors: Risk Factors: DM, Current or recent (<one month) smoker, HTN, HLP, family history of CAD, obesity. Risk Scores: Risk Factors: DM, Current or recent (<one month) smoker, HTN, HLP, family history of CAD, obesity. (HELENA BAY DO) C/O Chest Pain: N/A (TANA COLLAZO MD) Course & Med Decision Making Course & Med Decision Making Patient immediately greeted on ER arrival and extracted from car NIH stroke scale performed in 2. ABCs and [id number] glucose unremarkable. Given reported neuro deficits, code stroke activated and patient immediately sent to CT scan head which was ultimately negative for any emergent or surgical findings Patient chart reviewed, appears she had similar presentation on prior admission February 20. Despite being within TPA window, she is not a candidate due to ongoing Eliquis use in fact that NIH stroke scale is less than 4. At this time in care, my shift was ending. Comprehensive signout given to oncoming physician. Please defer to Dr. Collazo's documentation regarding future care of patient while in ER setting (HELENA BAY DO) Course & Med Decision Making Patient care handed off to me at checkout pending the rest of the work-up. CT o f the head and CTA of the head and neck not concerning. Laboratory analysis with no acute findings that are concerning and/or would explain her symptomology. Patient able to walk normally. Patient otherwise asymptomatic. Advised to follow-up in the morning with primary care physician. Advised to take all medications as prescribed. Gave return precautions to the ED. Family grateful, verbalized understanding and agreed with plan of discharge. (TANA COLLAZO MD) Dragon Disclaimer Dragon Disclaimer This electronic medical record was generated, in whole or in part, using a voice recognition dictation system. (HELENA BAY DO) NIH Stroke Scale: NIH Stroke Scale Response (Comments) Value Level of Consciousness: 0 Alert/Responsive 0 LOC Questions: 0 Answers both correctly 0 LOC Commands: 0 Performs both tasks 0 Best Gaze: 1 Partial gaze palsy 1 Visual: 0 No visual loss 0 Facial Palsy: 0 Normal, symmetrical 0 Motor - Left Arm 0 No drift 0 Motor - Right Arm 1 Drifts but can hold 1 Motor - Left Leg 0 No drift 0 Motor: Right Leg 0 No drift 0 Limb Ataxia: 0 Absent 0 Sensory: 0 No loss 0 Best Language: 1 Mild to mod aphasia 1 Dysathria: 0 Normal 0 Extinction and Inattention: 0 Normal 0 Total 3 Departure Departure: Referrals: RADHA LANDERS MD (PCP) HELENA BAY DO Mar 17, 2021 17:53 TANA COLLAZO MD Mar 17, 2021 20:16
--- NOTE | 2021-03-17 18:06 | RAD ---
CT STROKE HEAD W/O Date: 03/17/2021 5:52 PM Clinical Indication: SLURRED SPEECH Comparison: 02/20/2021. Technique: 5 mm axial tomographic images were obtained of the head without contrast. These were view ed on brain and bone windows. One or more of the following dose reduction techniques were utilized: A utomated exposure control (AEC), Adjustment of mA and/or kV according to patient size, Use of iterati ve reconstruction technique such as ASiR, CT scan done according to ALARA and image gently/image diamond ly Findings: Mild generalized cerebral and cerebellar volume loss. Mild nonspecific periventricular hypoattenuatio n, most commonly seen with chronic small vessel ischemic disease. Calcified atherosclerosis of the bi lateral cavernous and paraclinoid internal carotid arteries and intracranial vertebral arteries. No intra- or extra-axial mass or fluid collection. No acute hemorrhage. The ventricles are normal in size, shape, and morphology. The garrett-white matter junction is normal. The subarachnoid cisterns are patent. The visualized paranasal sinuses are normal. The visualized portions of the orbits and globes are no rmal. The mastoid air cells are clear. The railroader topogram shows no lytic lesion or fracture. Impression: No acute hemorrhage or large territory garertt-white loss. FOR INTERNAL CODING PURPOSES Critical result: Findings discussed with Dr. Lion at 03/17/2021 6:01 PM. RESULT CODE: (C) Electronically signed by: Shalom Gomes MD (03/17/2021 6:03 PM) [facility]
--- NOTE | 2021-03-17 18:14 | EKG ---
[address] [address] Test Date: 2021-03-17 Test Time: 18:06:05 Pat Name: YAMILET CHAU Department: Room: Gender: F Pictures Editor: FEMI : 1935 Requested By: HELENA BAY Order Number: [id number] Reading MD: Bertrand Minor Measurements Intervals [place] Rate: 92 P: 28 OR: 194 QRS: -17 QRSD: 132 T: 115 QT: 382 QTc: 478 Interpretive Statements SINUS RHYTHM ATRIAL PREMATURE COMPLEX(ES) LEFT ATRIAL ABNORMALITY LEFTWARD AXIS LEFT BUNDLE BRANCH BLOCK ABNORMAL ECG Electronically Signed On 03-19-2021 16:04:39 CDT by Bertrand Minor
[2021-03-17] MEDS ORDERED: IOHEXOL 350 MG/ML 100 ML VIAL. IV ONE (18:30)
[2021-03-17 18:31] LABS: BASO # 0.1 x10^3/uL (0.0-0.2); BASO % 1 % (0-3); EOS # 0.2 x10^3/uL (0.0-0.7); EOS % 3 % (0-3); HEMATOCRIT 39.3 % (36.0-47.0); LYMPH # 1.7 x10^3/uL (1.0-4.8); LYMPH % 26 % (24-48); MEAN CORPUSCULAR HEMOGLOBIN 30 pg (25-35); MEAN CORPUSCULAR HGB CONC 33 g/dL (31-37); MEAN CORPUSCULAR VOLUME 91 fL (79-100); MONO # 0.4 x10^3/uL (0.0-1.1); MONO % 6 % (0-9); NEUT # 4.4 x10^3uL (1.8-7.7); NEUT % 64 % (31-73); PLATELET COUNT 237 x10^3/uL (140-400); RED CELL DISTRIBUTION WIDTH 13.9 % (11.5-14.5); WHITE BLOOD COUNT 6.8 x10^3/uL (4.0-11.0)
[2021-03-17 18:34] LABS: CALCIUM 9.6 mg/dL (8.5-10.1); CREATININE 1.1 mg/dL (0.6-1.0); GFR 47.3; POTASSIUM 3.4 mmol/L (3.5-5.1)
--- NOTE | 2021-03-17 19:03 | RAD ---
EXAMINATION: Chest radiograph. VIEWS: Single AP view of the chest COMPARISON: None INDICATION:85 years, Female, code stroke. FINDINGS: Normal cardiomediastinal silhouette. Tortuous thoracic aorta with atherosclerotic disease of the aort ic arch. Minimal left basilar linear atelectasis. No focal consolidation. No pleural effusion or pneu mothorax. No acute osseous process. Surgical clips within the left axilla. IMPRESSION: No acute cardiopulmonary process. Electronically signed by: Pedro Woo DO (03/17/2021 7:01 PM) [facility]
--- NOTE | 2021-03-17 19:34 | RAD ---
EXAM: CTA HEAD AND NECK W/WO CONTRAST DATE: 03/17/2021 6:40 PM INDICATION: stroke w/u, slurred speech. Dyspnea TECHNIQUE: CTA angiogram of the head and neck was obtained after IV bolus administration of 100 cc of Isovue-370. The images were sent to workstation and multiplanar reconstructions were obtained. Mult iplanar reconstruction images to include MIP and 3-D reconstruction images are submitted. One or more of the following dose reduction techniques were utilized: Automated exposure control (AEC ), Adjustment of mA and/or kV according to patient size, Use of iterative reconstruction technique damico ch as ASiR, CT scan done according to ALARA and image gently/image wisely COMPARISON: Noncontrast CT head done earlier the same day. FINDINGS: CTA Head: The visualized distal internal carotid arteries, left anterior and bilateral middle cerebral arteries are patent and normal caliber. Aplastic right A1 segment. The distal vertebral arteries, basilar art susi, and posterior cerebral arteries are patent and normal caliber. No aneurysm or arteriovenous malf ormation is seen. CTA Neck: Right carotid: The right common carotid artery is patent and normal caliber. The carotid bifurcation is normal. No stenosis of the right internal carotid artery per NASCET criteria. The right external c arotid artery is patent. Left carotid: The left common carotid artery is patent and normal caliber. The carotid bifurcation is normal. No stenosis of the left internal carotid artery per NASCET criteria. The left external carot id artery is patent. Right vertebral: The right vertebral artery is patent and normal caliber. Left vertebral: The left vertebral artery is patent and normal caliber. The visualized portions of the aortic arch are normal. The origins of the brachiocephalic and subclav trace arteries are normal. No cervical lymphadenopathy. The thyroid gland is normal. The parotid and submandibular glands are no rmal. The visualized aerodigestive tract is unremarkable. Moderate multilevel degenerative disc height loss. Multilevel disc protrusions and marginal osteophyt es results in multilevel spinal canal stenosis. Multilevel uncovertebral and facet arthrosis with mul tilevel neural foraminal narrowing. No pulmonary mass or consolidation. No evidence of pulmonary thromboembolic disease. Small hiatal her marylin. Coronary artery atherosclerotic disease. IMPRESSION: 1. No intracranial large vessel occlusion. 2. No stenosis of the cervical carotid or vertebral arteries. 3. No pulmonary mass or consolidation. No evidence of pulmonary thromboembolic disease. PQRS Compliance Statement - Stenosis calculations for CT, MR and conventional angiography are based u sierra measurement of the distal ICA diameter in accordance with the NASCET methodology. Electronically signed by: Shalom Gomes MD (03/17/2021 7:32 PM) [facility]
[2021-03-17 19:53] VITALS: BP 136/73
--- NOTE | 2021-03-18 08:39 | RAD ---
EXAM: CTA HEAD AND NECK W/WO CONTRAST CTA CHEST W/WO CONTRAST DATE: 03/17/2021 6:40 PM INDICATION: stroke w/u, slurred speech. Dyspnea TECHNIQUE: CTA angiogram of the head and neck was obtained after IV bolus administration of 100 cc of Isovue-370. The images were sent to workstation and multiplanar reconstructions were obtained. Multiplanar reconstruction images to include MIP and 3-D reconstruction images are submitted. One or more of the following dose reduction techniques were utilized: Automated exposure control (AEC), Adjustment of mA and/or kV according to patient size, Use of iterative reconstruction technique such as ASiR, CT scan done according to ALARA and image gently/image wisely COMPARISON: Noncontrast CT head done earlier the same day. FINDINGS: CTA Head: The visualized distal internal carotid arteries, left anterior and bilateral middle cerebral arteries are patent and normal caliber. Aplastic right A1 segment. The distal vertebral arteries, basilar artery, and posterior cerebral arteries are patent and normal caliber. No aneurysm or arteriovenous malformation is seen. CTA Neck: Right carotid: The right common carotid artery is patent and normal caliber. The carotid bifurcation is normal. No stenosis of the right internal carotid artery per NASCET criteria. The right external carotid artery is patent. Left carotid: The left common carotid artery is patent and normal caliber. The carotid bifurcation is normal. No stenosis of the left internal carotid artery per NASCET criteria. The left external carotid artery is patent. Right vertebral: The right vertebral artery is patent and normal caliber. Left vertebral: The left vertebral artery is patent and normal caliber. The visualized portions of the aortic arch are normal. The origins of the brachiocephalic and subclavian arteries are normal. No cervical lymphadenopathy. The thyroid gland is normal. The parotid and submandibular glands are normal. The visualized aerodigestive tract is unremarkable. Moderate multilevel degenerative disc height loss. Multilevel disc protrusions and marginal osteophytes results in multilevel spinal canal stenosis. Multilevel uncovertebral and facet arthrosis with multilevel neural foraminal narrowing. No pulmonary mass or consolidation. No evidence of pulmonary thromboembolic disease. Small hiatal hernia. Coronary artery atherosclerotic disease. IMPRESSION: 1. No intracranial large vessel occlusion. 2. No stenosis of the cervical carotid or vertebral arteries. 3. No pulmonary mass or consolidation. No evidence of pulmonary thromboembolic disease. PQRS Compliance Statement - Stenosis calculations for CT, MR and conventional angiography are based upon measurement of the distal ICA diameter in accordance with the NASCET methodology. Electronically signed by: Shalom Gomes MD (03/17/2021 7:32 PM) [facility]
== END 2021-03-18 06:30 | disposition home or self-care (01) ==
LOC: ER 17:41
DX: R53.1 Weakness (principal); I10 Essential (primary) hypertension; Z86.73 Personal history of transient ischemic attack (TIA), and cerebral infarction without residual deficits
CPT/HCPCS: 36415; 70450; 70496; 70498; 71045; 71275; 80048; 82947; 83735; 84484; 85025; 85610; 85730; 93005; 99285; Q9967

== ENCOUNTER → 2021-07-22 | Outpatient (CLI) | payer MEDICARE ==
[2021-07-22 08:07] LABS: BASO % 1 % (0-3); EOS # 0.2 x10^3/uL (0.0-0.7); EOS % 3 % (0-3); HEMATOCRIT 40.3 % (36.0-47.0); HEMOGLOBIN 12.9 g/dL (12.0-15.5); LYMPH # 1.5 x10^3/uL (1.0-4.8); LYMPH % 23 % (24-48); MEAN CORPUSCULAR HEMOGLOBIN 30 pg (25-35); MEAN CORPUSCULAR HGB CONC 32 g/dL (31-37); MEAN CORPUSCULAR VOLUME 93 fL (79-100); MONO # 0.5 x10^3/uL (0.0-1.1); MONO % 8 % (0-9); NEUT # 4.2 x10^3uL (1.8-7.7); NEUT % 66 % (31-73); PLATELET COUNT 296 x10^3/uL (140-400); RED BLOOD COUNT 4.35 x10^6/uL (3.50-5.40); WHITE BLOOD COUNT 6.4 x10^3/uL (4.0-11.0)
[2021-07-22 08:24] LABS: ALBUMIN 3.6 g/dL (3.4-5.0); ALBUMIN/GLOBULIN RATIO 0.9 (1.0-1.7); CREATININE 0.8 mg/dL (0.6-1.0); GFR 68.2; TOTAL BILIRUBIN 0.5 mg/dL (0.2-1.0); TOTAL PROTEIN 7.4 g/dL (6.4-8.2)
== END ==
LOC: LAB 07:21
PROVIDERS: ATTEND Internal Medicine Cardiovascular Disease
DX: I10 Essential (primary) hypertension (principal)
CPT/HCPCS: 36415; 80053; 80061; 85025

== ENCOUNTER 2021-08-22 12:40 | Observation (INO) | payer MEDICARE ==
[~2021-08-22] VITALS: Ht 157.5 cm; Wt 76.3 kg
--- NOTE | 2021-08-22 13:17 | PHYS DOC ---
Past History Past Medical History: Hypertension, TIA Additional Past Medical Histor: blood clots Past Surgical History: Other Additional Past Surgical Histo: breast Alcohol Use: None General Adult EDM: Chief Complaint: WEAKNESS/GENERALIZED HPI: HPI: Patient is a 86-year-old female coming in for weakness. Patient is concerned about having a recurrent TIA. Patient was hospitalized for TIA symptoms about 4 to 5 months ago. Has no residual deficits. Patient states she was eating lunch with her family about 2 hours ago states she started to feel "funny". She d escribes as feeling cold and then when she was leaving she had a difficult time walking. Denies any headaches, vertigo, vision changes, shortness of breath or chest pain. Patient states she felt like she just could not walk, was assisted by her family did not fall. Did not note any lateralizing weakness. Patient states she has had occasional neck pain from a rotator cuff injury that is her baseline. Patient is taking Eliquis. Was started on vitamin D yesterday. No recent changes to her blood pressure medications. Review of Systems: Review of Systems: All other systems within normal limits except for as noted in the HPI Allergies: Allergies: Allergies Coded Allergies Type Severity Reaction Last Updated Verified No Known Drug Allergies 02/20/21 No Physical Exam: PE: Constitutional: Well developed, well nourished, no acute distress, non-toxic appearance. [] HENT: Normocephalic, atraumatic, bilateral external ears normal, nose normal. [] Eyes: PERRLA, conjunctiva normal, no discharge, extraocular was intact. [] Neck: No rigidity, supple, no stridor. [] Cardiovascular: Regular rate and rhythm, brisk cap refill [] Lungs & Thorax: Non labored symmetric respirations, no tachypnea or respiratory distress [] Abdomen: Soft, nondistended. Skin: Warm, dry, no erythema, no rash. [] Back: Unremarkable Extremities: No deformities, range of motion grossly intact, no lower extremity edema. [] Neurologic: Alert and oriented X 3, no focal deficits noted. NIH 0, GCS 15 [] Psychologic: Affect normal, judgement normal, mood normal. [] Current Patient Data: Vital Signs: Vital Signs Date Time Temp Pulse Resp B/P (MAP) Pulse Ox O2 Delivery O2 Flow Rate FiO2 08/22/21 12:49 97.5 84 16 114/52 (72) 98 Room Air EKG: EKG: Sinus rhythm, heart rate 70 bpm, left axis deviation, left bundle branch block, no STEMI. No significant changes when compared to EKG dated 03-17-21 [] Radiology/Procedures: Radiology/Procedures: [] Heart Score: C/O Chest Pain: No HEART Score for Chest Pain: HEART Score for Chest Pain Response (Comments) Value History Slighlty/Non-Suspicious 0 ECG Nonspecific Repolarizatio 1 Age > 65 2 Risk Factors 1 or 2 Risk Factors 1 Troponin < Normal Limit 0 Total 4 Risk Factors: Risk Factors: DM, Current or recent (<one month) smoker, HTN, HLP, family history of CAD, obesity. Risk Scores: Score 0 - 3: 2.5% MACE over next 6 weeks - Discharge Home Score 4 - 6: 20.3% MACE over next 6 weeks - Admit for Clinical Observation Score 7 - 10: 72.7% MACE over next 6 weeks - Early Invasive Strategies Course & Med Decision Making: Course & Med Decision Making Patient mid to hospitalist observation on telemetry to trend enzymes. Yamileth Disclaimer: Yamileth Disclaimer: This electronic medical record was generated, in whole or in part, using a voice recognition dictation system. Departure Departure: Impression: Primary Impression: Weakness Disposition: ADMITTED INPATIENT Admitting Physician: Giovani Mathew Condition: STABLE Referrals: RADHA LANDERS MD (PCP) ANDRIA CONTRERAS MD Aug 22, 2021 13:17
[2021-08-22] MEDS ORDERED: IOHEXOL 350 MG/ML 100 ML VIAL. IV ONE (13:30)
--- NOTE | 2021-08-22 13:37 | RAD ---
STUDY: CT head without contrast INDICATION: Weakness. Ataxia. Code stroke. COMPARISON: 03/17/2021 TECHNIQUE: Axial CT imaging through the head without the use of intravenous contrast. Sagittal and co nicky reformats were obtained. One or more of the following individualized dose reduction techniques were utilized for this examinat ion: 1. Automated exposure control 2. Adjustment of the mA and/or kV according to patient size 3. Use of iterative reconstruction technique. FINDINGS: No acute intracranial hemorrhage. No large area of garrett-white matter differentiation loss. No mass ef fect, midline shift or hydrocephalus. Not unexpected parenchymal volume loss for patient age. Redemonstrated white matter findings most lik precious on account of chronic microvascular ischemic change. Intracranial calcific atherosclerosis. Osteopenia. Hyperostosis frontalis interna. Adequately aerated paranasal sinuses and mastoid air cell s. IMPRESSION: No acute intracranial hemorrhage or CT evidence for an acute cortical infarction. No significant adam ge from the 03/17/2021 comparison. FOR INTERNAL CODING PURPOSES Critical result: Findings discussed with ANDRIA CONTRERAS MD on 08/22/2021 at 1:32 PM. RESULT CODE: (C) Electronically signed by: GYPSY BERRY MD (08/22/2021 1:34 PM) [id number]
[2021-08-22 13:49] LABS: BASO # 0.1 x10^3/uL (0.0-0.2); BASO % 2 % (0-3); EOS # 0.1 x10^3/uL (0.0-0.7); EOS % 2 % (0-3); HEMATOCRIT 38.8 % (36.0-47.0); HEMOGLOBIN 12.7 g/dL (12.0-15.5); LYMPH % 14 % (24-48); MEAN CORPUSCULAR HEMOGLOBIN 30 pg (25-35); MEAN CORPUSCULAR HGB CONC 33 g/dL (31-37); MEAN CORPUSCULAR VOLUME 91 fL (79-100); MONO # 0.6 x10^3/uL (0.0-1.1); MONO % 8 % (0-9); NEUT # 5.4 x10^3uL (1.8-7.7); NEUT % 75 % (31-73); PLATELET COUNT 298 x10^3/uL (140-400); RED BLOOD COUNT 4.24 x10^6/uL (3.50-5.40); WHITE BLOOD COUNT 7.2 x10^3/uL (4.0-11.0)
[2021-08-22 14:01] LABS: CALCIUM 9.2 mg/dL (8.5-10.1); CREATININE 0.9 mg/dL (0.6-1.0); GFR 59.5; POTASSIUM 4.4 mmol/L (3.5-5.1)
[2021-08-22 14:07] LABS: ALBUMIN 3.2 g/dL (3.4-5.0); TOTAL BILIRUBIN 0.6 mg/dL (0.2-1.0); TOTAL PROTEIN 6.4 g/dL (6.4-8.2)
--- NOTE | 2021-08-22 14:16 | RAD ---
STUDY: CT angiography of the head and neck INDICATION: Weakness. Ataxia. Code stroke. COMPARISON: 03/17/2021 TECHNIQUE: Axial CT imaging of the head and neck utilizing angiography protocol and performed after t he intravenous administration of contrast. Multiplanar reformats and 3D MIP acquisitions were obtaine d. Encountered areas of stenosis are measured per NASCET criteria. One or more of the following individualized dose reduction techniques were utilized for this examinat ion: 1. Automated exposure control 2. Adjustment of the mA and/or kV according to patient size 3. Use of iterative reconstruction technique. FINDINGS: CTA NECK: Arch/Proximal Great Vessels: No dissection or aneurysm. Partially visualized calcific coronary artery disease. Patent great vessel origins. Unchanged mild stenosis at the origin of the right common garibay tid artery on the brachiocephalic artery. Patent bilateral common carotid arteries elsewhere. The sub clavian arteries are patent. Carotid Bifurcation/Cervical ICA: Tortuosity of the left more so than right cervical ICAs. No flow-li miting stenosis or dissection. Vertebral Arteries: The extracranial right vertebral artery is slightly dominant. No stenosis or diss ection throughout the neck. CTA HEAD: Posterior Circulation: Maintained patency of both intracranial vertebral arteries. The basilar artery is patent. No newly seen flow-limiting stenosis of the adequately assessed posterior cerebral arteri es. No posterior circulation segmental occlusion. Anterior Circulation: The intracranial ICAs are patent. No flow-limiting stenosis or branch vessel oc clusion of the middle or anterior cerebral arteries. As before, the right A1 CRISTA segment is hypoplast ic with supply to the right A2 segment and beyond provided by a patent anterior communicating artery. Veins: Patent dural sinuses. MISCELLANEOUS: No significant new nonvascular finding. Redemonstration of multilevel degenerative changes of the cer vical more so than visualized thoracic spine with discogenic arthrosis greatest at C5-C6 and C6-C7. S everal levels with central canal and neural foramina narrowing without progression.. IMPRESSION: CT Angio Neck: 1. No flow-limiting stenosis or dissection of the extracranial vertebral or carotid arteries. CT Angio Head: 1. No branch vessel occlusion or newly apparent flow-limiting stenosis throughout the anterior or pos terior cerebral circulation. Patent dural sinuses. If there is persistent clinical concern for an isc hemic event MRI is recommended. FOR INTERNAL CODING PURPOSES Critical result: Findings discussed with ANDRIA L CONTRERAS, MD on 08/22/2021 at 2:10 PM. RESULT CODE: (C) Electronically signed by: GYPSY BERRY MD (08/22/2021 2:13 PM) [id number]
--- NOTE | 2021-08-22 14:57 | EKG ---
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
[2021-08-22] MEDS ORDERED: ACETAMINOPHEN 325 MG TABLET PO PRN (15:30)
[2021-08-22] MEDS ORDERED: ONDANSETRON PF 4 MG/2 ML VIAL. IVP PRN (15:30)
[2021-08-22] MEDS ORDERED: MORPHINE SULFATE 2 MG/ML DISP.SYRIN. IVP PRN (15:30)
[2021-08-22 16:40] VITALS: BP 131/75
[2021-08-22] MEDS ORDERED: LEVO50TA5 PO (18:20)
[2021-08-22] MEDS ORDERED: CHOL200010 PO (18:20)
[2021-08-22 19:00] VITALS: BP 126/62
[2021-08-22] MEDS: APIXABAN 5 MG TABLET. PO SCH (20:43)
[2021-08-22 23:00] VITALS: BP 98/61
[2021-08-23 05:40] VITALS: BP_SYST 103; BP_SYST 153; BP_DIAS 62; BP_DIAS 69
[2021-08-23] MEDS ORDERED: LEVOTHYROXINE 50 MCG TABLET PO SCH (06:00)
[2021-08-23] MEDS: APIXABAN 5 MG TABLET. PO SCH (09:00)
[2021-08-23] MEDS ORDERED: CHOLECALCIFEROL (VITAMIN D3) 1,000 UNIT TABLET PO SCH (09:00)
[2021-08-23] MEDS ORDERED: LISINOPRIL 10 MG TABLET PO SCH (09:00)
--- NOTE | 2021-08-23 09:08 | HP ---
DATE OF SERVICE: 08/23/2021 ADMIT DATE: 08/22/2021 ATTENDING PHYSICIAN: Dr. Mathew. CHIEF COMPLAINT: Dizziness and difficulty walking. HISTORY OF PRESENT ILLNESS: The patient is a pleasant 86-year-old female well known to me from a previous admission exactly 6 months ago. She has a longstanding history of TIAs. She is on increased doses of Plavix. We had increased her dose back in February. She was having brunch with her family. She stated she started to feel funny. She got a cold, clammy feeling and difficulty walking. No headaches. Speech is fluent. By the time I saw her, she has occasional neck pain from a musculoskeletal injury. She is currently very compliant on Eliquis. She is otherwise very alert and straightforward. The workup in the ED showed no acute strokes or bleeds. Symptoms resolved within a couple of hours. She was admitted overnight with a diagnosis of TIAs and further observation. By the time I saw her the next morning, she was back to her baseline. PAST MEDICAL HISTORY: Significant for hypertension, TIAs, history of breast cancer. SOCIAL HISTORY: She is a nonsmoker, nondrinker. ALLERGIES: She has no recorded drug allergies. CURRENT MEDICATIONS: Include the following: She takes Eliquis 5 mg b.i.d., vitamin D, Synthroid, and lisinopril 10 mg daily. FAMILY HISTORY: Noncontributory. REVIEW OF SYSTEMS: Significant for the symptoms, which lasted a couple of hours. She had completely resolved by this time. She is on thyroid replacement. She is still active. She has a walker, but she does not use it. I encouraged her to use her walker. All other systems reviewed and turned out to be negative. PHYSICAL EXAMINATION: GENERAL: When I saw her, this is a pleasant elderly female who is alert and oriented and her speech was fluent. VITAL SIGNS: Initial vital signs showed a blood pressure of 126/63, pulse is 72 and regular. She was afebrile. HEENT: Head is without trauma. Pupils are reactive. Sclerae nonicteric. Oropharynx is clear. NECK: Supple, no bruits. LUNGS: Clear. CARDIOVASCULAR: Regular heart tones. ABDOMEN: Soft. EXTREMITIES: Without edema. NEUROLOGIC FINDINGS: Focally intact. Speech is fluent. No deficits. PERTINENT LABORATORY AND X-RAY STUDIES: CT of the head showed no acute strokes, atrophy generalized. Hemoglobin 12.7 grams, white count 7200. Electrolytes within normal range. Cardiac enzymes negative for coronary ischemia. Blood sugar was normal. ASSESSMENT: 1. An 86-year-old female with recurrent TIAs. By definition, symptoms have resolved within 24 hours. She is back to baseline. 2. Chronic anticoagulation, which will be continued. 3. Essential hypertension. Her blood pressure is marginal. I have taken the liberty of stopping her lisinopril. PLAN: 1. Observation status. 2. Hold lisinopril. 3. Continue Eliquis. 4. Diet as tolerated. 5. Discharge planning in the morning. LENO DR: Gin TID: [id number] CC: RADHA LANDERS MD
--- NOTE | 2021-08-23 16:03 | DS ---
DATE OF DISCHARGE: 08/23/2021 ATTENDING PHYSICIAN: Dr. Mathew. FINAL DISCHARGE DIAGNOSES: 1. Transient ischemic attack, symptoms resolved. 2. Chronic anticoagulation. 3. Essential hypertension, currently normotensive. 4. Hypothyroidism, on replacement. HISTORY OF PRESENT ILLNESS: The patient is a pleasant 86-year-old female with similar symptoms 6 months ago. She was admitted with stroke symptoms, TIA. She had weakness, dizziness and difficulty speaking. She had a similar episode exactly 6 months ago. She is currently on doses of Eliquis. The workup in the ED showed no acute stroke. She was admitted for observation. PHYSICAL EXAMINATION: Please see the dictated note. PERTINENT LABORATORY AND X-RAY STUDIES: Admission hemoglobin was 12.7 g/dL, white count 7200. Electrolytes all within normal range. Creatinine is 0.9 mg percent. Cardiac enzymes negative for coronary ischemia. Nonfasting blood sugar 114 and transaminases are all normal. The obligatory CT of the head as well as head and neck CT angiogram showed no significant lesions. No acute strokes identified. She had some volume loss, age-related. COURSE IN HOSPITAL: She was admitted for observation. She had no further symptoms. We continued her Eliquis. Because of marginal blood pressure between 106 and 110, I held her lisinopril for now. She did well. By the time I saw her, her speech was entirely fluent. She had no focal deficits. At this time, she is discharged home with reassurance. I highly recommended she use a walker. She has been remiss in using her walker. I recommended that she hold the lisinopril for now. No new home meds. Other discharge meds include continuation of Eliquis 5 mg b.i.d. and Synthroid 50 mcg daily. She will follow up with Dr. Landers as scheduled. The patient was then discharged from our hospital in stable condition with explicit drug and followup care. GARY/NETO/REED DR: GARY/brook TID: [id number] CC: RADHA LANDERS MD
== END 2021-08-23 11:10 | disposition home or self-care (01) ==
LOC: ER 12:40 → INTOOBSV 15:19 → ER HOLD 15:19 → 1 SOUTH 15:34
PROVIDERS: ADMIT Hospitalist; ATTEND Hospitalist
DX: G45.9 Transient cerebral ischemic attack, unspecified (principal); I10 Essential (primary) hypertension; E03.9 Hypothyroidism, unspecified; R53.1 Weakness; Z79.01 Long term (current) use of anticoagulants; Z85.3 Personal history of malignant neoplasm of breast; Z86.73 Personal history of transient ischemic attack (TIA), and cerebral infarction without residual deficits; Z79.899 Other long term (current) drug therapy; Z98.890 Other specified postprocedural states
CPT/HCPCS: 36415; 70450; 70496; 70498; 80053; 82947; 84484; 85025; 85610; 85730; 93005; 99285; G0378; Q9967; G0379